=== PATIENT | female | born 1950 | race Caucasian/White ===

== ENCOUNTER 2021-09-23 00:28 | Emergency (ER) | payer MEDICARE, OTHER ==
[~2021-09-23] VITALS: Ht 162.6 cm; Wt 127.0 kg
[~2021-09-23 00:28] MED LIST: CARVEDILOL3.125 MG PO; FISH OIL 1,2001 EAC7 PO; Fenofibrate134 MG PO; LEVFLO500 PO; Lisinopril-Hct1 EAC4 PO; MAGNESIUM PO; NOVOLOG100 UNIT/2 SC; OXYC5 PO; PROBIOTIC1 EA13 PO; ROSUVASTATIN CA10 MG PO; TOUJEO MAX300 UNIT/2 SC; VICTOZA 2-0.6 MG/0.1 SC
[2021-09-23] MEDS ORDERED: Lisinopril2.5 MG PO (02:19)
== END 2021-09-23 04:39 | disposition home or self-care (01) ==
LOC: ER 00:28
DX: S42.211A Unspecified displaced fracture of surgical neck of right humerus, initial encounter for closed fracture (principal); W18.30XA Fall on same level, unspecified, initial encounter; Z79.4 Long term (current) use of insulin; Z79.899 Other long term (current) drug therapy; I10 Essential (primary) hypertension; E11.9 Type 2 diabetes mellitus without complications; F17.290 Nicotine dependence, other tobacco product, uncomplicated
CPT/HCPCS: 73030; 73060; A9270

== ENCOUNTER → 2022-03-07 | Outpatient (CLI) | payer MEDICARE, OTHER ==
[~2022-03-07] MED LIST changes: +Lisinopril2.5 MG PO
[2022-03-07 21:10] LABS: Adenovirus F 40/41 Not Detected (NOT DETECT); Astrovirus Not Detected (NOT DETECT); Campylobacter Sp Not Detected (NOT DETECT); Cryptosporidium Not Detected (NOT DETECT); Cyclospora Cayetanensis Not Detected (NOT DETECT); E. Coli O157 Not Detected (NOT DETECT); Entamoeba Histolytica Not Detected (NOT DETECT); Enteroaggregative E. coli-EAEC Not Detected (NOT DETECT); Enteropathogenic E. coli-EPEC Not Detected (NOT DETECT); Enterotoxigenic E. coli-ETEC Not Detected (NOT DETECT); Giardia Lamblia Not Detected (NOT DETECT); Norovirus GI/GII Not Detected (NOT DETECT); Plesiomonas Shigelloides Not Detected (NOT DETECT); Rotavirus A Not Detected (NOT DETECT); Salmonella Sp Not Detected (NOT DETECT); Sapovirus Not Detected (NOT DETECT); Shiga Toxin-prod E. coli-STEC Not Detected (NOT DETECT); Shigella/Enteroin E. coli-EIEC Not Detected (NOT DETECT); Vibrio Cholerae Not Detected (NOT DETECT); Vibrio Sp Not Detected (NOT DETECT); Yersinia Enterocolitica Not Detected (NOT DETECT)
== END | disposition home or self-care (01) ==
LOC: LAB SHORT 16:37
PROVIDERS: Physician Assistant Medical
DX: R19.7 Diarrhea, unspecified (principal)
CPT/HCPCS: 87507

== ENCOUNTER → 2024-07-16 | Outpatient (CLI) | payer MEDICARE, OTHER ==
[2024-07-21 15:09] LABS: PANCREATIC ELASTASE,FECAL 256 ug/g (>=100)
== END ==
LOC: LAB SHORT 12:17 → LAB 12:17 → LAB FUT 07-09 16:15
PROVIDERS: Physician Assistant
DX: K86.81 Exocrine pancreatic insufficiency (principal)
CPT/HCPCS: 82653

== ENCOUNTER 2024-08-24 | Day surgery (SDC) | payer MEDICARE, OTHER ==
[~2024-08-24] MED LIST changes: +LISI20 PO; -Lisinopril2.5 MG PO; +MAGNESIUM OXID500 MG PO; -MAGNESIUM PO
[2024-08-25] MEDS ORDERED: AMLO10 PO (10:06)
[2024-08-25] MEDS ORDERED: PROLIA60 MG/1 ML SC (10:08)
[2024-08-25] MEDS ORDERED: FENO160 PO (10:09)
[2024-08-25] MEDS ORDERED: Furosemide20 MG PO (10:10)
[2024-08-25] MEDS ORDERED: ZENPEP DR 10,01 EACH PO (10:12)
[2024-08-25] MEDS ORDERED: MOUNJARO5 MG/0.5 M SC (10:14)
[2024-08-25] MEDS ORDERED: TRAM50 PO (10:15)
== END 2025-03-24 23:00 | disposition home or self-care (01) ==
LOC: MOI US
DX: C50.412 Malignant neoplasm of upper-outer quadrant of left female breast (principal)
CPT/HCPCS: 19285; 77065; A4648; G0279

== ENCOUNTER 2024-09-02 08:34 | Day surgery (SDC) | payer MEDICARE, OTHER ==
[2024-09-02] VITALS (10 sets, daily range): BP systolic 111–146; BP diastolic 47–57
[~2024-09-02] VITALS: Ht 162.6 cm; Wt 126.7 kg
[~2024-09-02 08:34] MED LIST changes: +AMLO10 PO; +FENO160 PO; +Furosemide20 MG PO; +MOUNJARO5 MG/0.5 M SC; +PROLIA60 MG/1 ML SC; +TRAM50 PO; +ZENPEP DR 10,01 EACH PO
[2024-09-02] MEDS ORDERED: Lactated Ringer's 1,000 ML IV SCH (09:20)
[2024-09-02] MEDS ORDERED: CeFAZolin Sodium 2,000 MG in NS 100 ML IV SCH (09:20)
[2024-09-02] MEDS ORDERED: CeFAZolin Sodium 3,000 MG in NS 100 ML IV SCH (09:35)
[2024-09-02] MEDS ORDERED: Bupivacaine 0.5% HCl 5 MG/ML 30MLVIAL ONE (10:46)
[2024-09-02] MEDS ORDERED: FentaNYL Citrate 50 MCG/ML 2 ML Injection ONE (10:56)
[2024-09-02] MEDS ORDERED: propofoL 20 ML IV ONE (10:56)
--- NOTE | 2024-09-02 11:02 | NUR ---
Ambulatory in Day Surgery. History, Chart, Medications and Allergies reviewed before start of procedure. Lungs clear T/O to Auscultation. Patient confirms NPO status and agrees with scheduled surgery. Pre-Op teaching done. Pt verbalizes understanding. Patient States Post-Procedure ride home has been arranged. PT BLOOD SUGAR 274 REPORTED TO ANESTHESIA AND SURGEON, NO NEW ORDERS, OKAY TO PROCEED. PT BELONGINGS PLACED UNDERNEATH GURNEY FOR SAFEKEEPING. PT GLASSES TAKEN TO PACU FOR SAFEKEEPING.
[2024-09-02] MEDS ORDERED: Methylene Blue 1% 100 MG/10 ML VIAL ONE (11:18)
[2024-09-02] MEDS ORDERED: ePHEDrine Sulfate 50 MG/ML 1ML Injection ONE (11:30)
[2024-09-02] MEDS ORDERED: HYDROcodone 5-APAP 325 TAB PO PRN (13:05)
--- NOTE | 2024-09-02 14:00 | NUR ---
Patient up to Ambulate independently. Gait steady. Discharge instructions reviewed with patient. Patient verbalizes understanding. Copy given to patient to take home, [facility]. Patient States Post-Procedure ride home has been arranged. Discharged via wheelchair to private car for ride home. PT A/O. REPORTS PAIN TOLERABLE. REPORTS READY TO GO HOME. PT SENT WITH BELONGINGS AND SCRIPT. PT DRESSING C/D/I. BREAST BINDER IN PLACE.
== END 2024-09-02 14:00 | disposition home or self-care (01) ==
LOC: ORSCMMR 08:34 → NM 08:34 → ORSCMMR 08:35 → NM 09:00 → ORSCMMR 14:00
PROVIDERS: Surgery
PROC: 0HBU0ZZ Excision of Left Breast, Open Approach (ICD-10-PCS; principal; 2024-09-02 10:30)
PROC: 07B60ZX Excision of Left Axillary Lymphatic, Open Approach, Diagnostic (ICD-10-PCS; principal; 2024-09-02 10:30)
DX: C50.412 Malignant neoplasm of upper-outer quadrant of left female breast (principal); D36.0 Benign neoplasm of lymph nodes; Z17.0 Estrogen receptor positive status [ER+]; Z17.21 Progesterone receptor positive status; Z17.32 Human epidermal growth factor receptor 2 negative status; I12.9 Hypertensive chronic kidney disease with stage 1 through stage 4 chronic kidney disease, or unspecified chronic kidney disease; E11.22 Type 2 diabetes mellitus with diabetic chronic kidney disease; N18.30 Chronic kidney disease, stage 3 unspecified; Z79.4 Long term (current) use of insulin; E66.01 Morbid (severe) obesity due to excess calories; Z68.42 Body mass index [BMI] 45.0-49.9, adult; E11.42 Type 2 diabetes mellitus with diabetic polyneuropathy; E78.5 Hyperlipidemia, unspecified; J44.9 Chronic obstructive pulmonary disease, unspecified; F17.290 Nicotine dependence, other tobacco product, uncomplicated; Z85.3 Personal history of malignant neoplasm of breast; Z85.42 Personal history of malignant neoplasm of other parts of uterus
CPT/HCPCS: 38792; 76098; 82947; 88307; A9270; A9520; J0690; J2704; J3010; J7120; Q9968